=== PATIENT | male | born 1975 | race American Indian/Alaskan Native ===

== ENCOUNTER 2018-04-04 23:28 | Emergency (ER) | payer SELFPAY ==
[2018-04-05] MEDS ORDERED: MOTRIN PO ONE (00:03)
--- NOTE | 2018-04-05 01:14 | XRay Report ---
FINAL REPORT PROCEDURE: XR SPINE LUMBOSACRAL 2-3V TECHNIQUE: Lumbar spine radiographs, including AP, lateral, bilateral oblique, flexion, and extension views. CPT 13368 HISTORY: back pain COMPARISON: No prior studies are available for comparison. FINDINGS: Alignment in neutral position: Normal . Vertebral body movement with flexion and extension: Physiologic . Vertebral body heights/Disk spaces: Normal . Fracture(s): None . Facets: Normal . Bone mineralization: Normal . IMPRESSION: Meño Examination.
--- NOTE | 2018-04-05 01:37 | Cat Scan Report ---
FINAL REPORT PROCEDURE: CT HEAD/BRAIN WO CON TECHNIQUE: Computerized tomography of the head was performed without contrast material. HISTORY: headache COMPARISON: No prior studies are available for comparison. FINDINGS: Skull and scalp: Normal. Paranasal sinuses: Normal. Ventricles and subarachnoid spaces: Normal. Cerebrum: No evidence of hemorrhage, acute infarction or mass . Cerebellum and brainstem: No evidence of hemorrhage, acute infarction or mass. Vasculature: Normal. Comments: There fluid in the left mastoid air cells and the left middle ear suggesting otomastoiditis. IMPRESSION: There is no skull fracture. There is no intracranial hemorrhage, edema, mass, mass effect or midline shift. The paranasal sinuses are clear. There is left otomastoiditis.
--- NOTE | 2018-04-05 01:40 | Cat Scan Report ---
FINAL REPORT PROCEDURE: CT CERVICAL SPINE WO CON TECHNIQUE: Computerized tomography of the cervical spine was performed from the skull base to T1 without contrast material. HISTORY: headache COMPARISON: No prior studies are available for comparison. FINDINGS: The skull base and foramen magnum are intact. The cervical vertebrae are intact. There are no fractures or malalignments. The disc spaces are normal. The facet joints are intact. Soft tissues are unremarkable. IMPRESSION: No significant abnormality.
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
[2018-04-05] MEDS ORDERED: HCTZ PO ONE (06:14)
[2018-04-05] MEDS ORDERED: HCTZ ONE (06:16)
[2018-04-05 06:17] VITALS: BP 154/106
== END 2018-04-05 06:18 | disposition home or self-care (01) ==
LOC: ED 23:28
DX: S39.012A Strain of muscle, fascia and tendon of lower back, initial encounter (principal); S16.1XXA Strain of muscle, fascia and tendon at neck level, initial encounter; J01.20 Acute ethmoidal sinusitis, unspecified; I10 Essential (primary) hypertension; F17.200 Nicotine dependence, unspecified, uncomplicated; V49.49XA Driver injured in collision with other motor vehicles in traffic accident, initial encounter; Y93.89 Activity, other specified; Y92.89 Other specified places as the place of occurrence of the external cause; Y99.8 Other external cause status
CPT/HCPCS: 70450; 72100; 72125; 99284

== ENCOUNTER 2018-11-28 03:01 | Emergency (ER) | payer OTHER ==
[2018-11-28] MEDS ORDERED: ZITHROMAX PO ONE (03:45)
[2018-11-28] MEDS ORDERED: ROCEPHIN IM ONE (03:45)
[2018-11-28] MEDS ORDERED: XYLOCAINE 1% MPF 5 mL INFILTRATI ONE (03:45)
--- NOTE | 2018-11-28 03:45 | Emergency Department Report ---
ED Dysuria HPI - HPI Chief Complaint: Urogenital-Male Stated Complaint: PENILE PAIN/MED REFILL Time Seen by Provider: 11/28/18 03:33 Duration: 3 Days Severity: Mild Symptoms: Dysuria: Yes, Frequency: No, Suprapubic Pain: No, Flank Pain: No, Fever: No, Hematuria: No, Abdominal Pain: No, Previous UTI's: No Other History: Patient is a 42-year-old male who presents to the emergency room tonight complaining of penile discharge. Patient is also requesting a med refill for his lisinopril HCTZ. Additional complaints including earache and sore throat. Patient is concerned for STD. ED Review of Systems ROS: Stated complaint: PENILE PAIN/MED REFILL Other details as noted in HPI Comment: All other systems reviewed and negative ED Past Medical Hx - Past Medical History Previous Medical History?: Yes Hx Hypertension: Yes - Surgical History Past Surgical History?: No - Family History Family history: no significant - Social History Smoking Status: Current Some Day Smoker Substance Use Type: None - Medications Home Medications: Home Medications Medication Instructions Recorded Confirmed Last Taken Type Lisinopril/Hydrochlorothiazide 1 tab PO QDAY #30 tablet 11/28/18 Unknown Rx [Zestoretic 20-25 mg] Dysuria Exam - Exam General: Vital signs noted. No distress. Alert and acting appropriately. Exam: Yes Moist Mucous Membranes, No CVA Tenderness, No Abdominal Tenderness, No Rigidity or Guarding ED Course Vital Signs 11/28/18 11/28/18 03:07 03:13 Temperature 98.0 F 98 F Pulse Rate 82 75 Respiratory 18 18 Rate Blood Pressure 167/108 167/108 O2 Sat by Pulse 98 98 Oximetry ED Medical Decision Making - Medical Decision Making gc pending empiric treatment due to public health risk educated on safe sex dc home with pcp follow up Vital Signs 11/28/18 11/28/18 03:07 03:13 Temperature 98.0 F 98 F Pulse Rate 82 75 Respiratory 18 18 Rate Blood Pressure 167/108 167/108 O2 Sat by Pulse 98 98 Oximetry Critical care attestation.: If time is entered above; I have spent that time in minutes in the direct care of this critically ill patient, excluding procedure time. ED Disposition Clinical Impression: Concern about STD in male without diagnosis, Dysuria, HTN (hypertension), Medication refill Disposition: DC-01 TO HOME OR SELFCARE Is pt being admited?: No Does the pt Need Aspirin: No Condition: Stable Instructions: Safe Sex (ED) Additional Instructions: safe sex follow up with pcp referral below Referrals: [facility] [Outside] - 3-5 Days Time of Disposition: 03:42
[2018-11-28 03:46] LABS: Bilirubin,Urine Negative (Negative); Blood,Urine Moderate (Negative); Color,Urine Yellow (Yellow); Protein,Urine <15 mg/dL mg/dL (Negative); WBC,Urine < 1.0 /HPF (0.0-6.0)
[2018-11-28 03:47] LABS: Mucus,Urine Few /HPF
[2018-11-29 18:14] VITALS: BP 149/92
== END 2018-11-28 05:50 | disposition home or self-care (01) ==
LOC: ED 03:01
DX: R30.0 Dysuria (principal); I10 Essential (primary) hypertension; Z76.0 Encounter for issue of repeat prescription; F17.200 Nicotine dependence, unspecified, uncomplicated
CPT/HCPCS: 81001; 87591; 96372; 99283; J0696

== ENCOUNTER 2020-05-17 20:06 | Emergency (ER) | payer SELFPAY ==
[2020-05-17 21:08] VITALS: BP 160/100
--- NOTE | 2020-05-17 21:52 | Emergency Department Report ---
Stated Complaint: BURNING IN PENIS - HPI History of Present Illness: 44 y/o male comes in for STD screening and treatment. Reports unprotected intercourse. Having burning in his penis. - Exam Physical Exam: axo times 3 NAD non toxic ambulatory without difficulties MSE screening note: Focused history and physical exam performed. Due to findings the following was ordered: 44 y/o male comes in for STD screening and treatment. Reports unprotected inte rcourse. Having burning in his penis. Referral to [facility] ED Disposition for MSE Disposition: MED SCREENING EXAM-LEFT Is pt being admited?: No Does the pt Need Aspirin: No Condition: Stable
== END 2020-05-17 22:00 | disposition left against medical advice (07) ==
LOC: ED 20:06
DX: Z20.2 Contact with and (suspected) exposure to infections with a predominantly sexual mode of transmission (principal); Z53.21 Procedure and treatment not carried out due to patient leaving prior to being seen by health care provider